=== PATIENT | female | born 1970 | race Caucasian/White ===

== ENCOUNTER 2019-07-24 20:20 | Emergency (ER) | payer SELFPAY ==
[~2019-07-24] VITALS: Ht 157.5 cm; Wt 73.9 kg
[2019-07-24 20:23] VITALS: BP 131/77; Ht 157.5 cm; Wt 73.9 kg
== END 2019-07-24 21:10 | disposition home or self-care (01) ==
LOC: ED 20:20
DX: J40 Bronchitis, not specified as acute or chronic (principal); Z98.890 Other specified postprocedural states